=== PATIENT | female | born 1995 | race African-American/Black ===

== ENCOUNTER 2020-04-16 15:29 | Emergency (ER) | payer MEDICAID ==
[~2020-04-16] VITALS: Ht 162.6 cm; Wt 68.0 kg
[2020-04-16] MEDS ORDERED: ACETAMINOPHEN 325MG TABLET PO ONE (17:00)
[2020-04-16 18:44] LABS: BASOPHILS % 0.8 % (0.0-2.0); EOSINOPHILS % 4.6 % (0.0-5.0); HEMATOCRIT. 36.6 % (36.0-48.0); HEMOGLOBIN. 12.6 g/dL (12.0-16.0); LYMPHOCYTES % 29.9 % (20.0-50.0); MEAN CORPUSCULAR HEMOGLOBIN 34.6 pg (28.0-32.0); MEAN CORPUSCULAR VOLUME 100.3 fL (81.0-99.0); MONOCYTES % 6.8 % (2.0-8.0); NEUTROPHILS % 57.9 % (40.0-76.0); PLATELET 223 x1000/uL (130-400); RED BLOOD CELL COUNT 3.65 mill/uL (4.2-5.4); RED CELL DISTRIBUTION WIDTH 13.9 % (11.6-14.6)
[2020-04-16 19:06] LABS: CHLORIDE 110 mEq/L (98-107)
[2020-04-16 19:31] VITALS: BP 113/76
== END 2020-04-16 19:33 | disposition home or self-care (01) ==
LOC: ER 15:29
DX: R10.31 Right lower quadrant pain (principal)
CPT/HCPCS: 36415; 74176; 80053; 81025; 85025; 99284